=== PATIENT | female | born 1975 | race African-American/Black ===

== ENCOUNTER 2016-06-28 18:24 | Emergency (ER) | payer MEDICAID, OTHER ==
[~2016-06-28] VITALS: Ht 149.9 cm; Wt 78.0 kg
[~2016-06-28 18:24] MED LIST: ACET500T3 PO
[2016-06-28 18:32] VITALS: BP 145/93; PULSE 108; RESP 16; TEMP 98.4; O2SAT 98
[2016-06-28] MEDS ORDERED: MULT1TAB84 PO (18:58)
[2016-06-28] MEDS ORDERED: BIOT10TA PO (18:58)
[2016-06-28] MEDS ORDERED: FEXO15TA PO (18:58)
[2016-06-28] MEDS ORDERED: predniSONE 20 MG TAB PO ONE (19:15)
[2016-06-28] MEDS ORDERED: PRED20 PO (19:22)
[2016-06-28] MEDS ORDERED: BENA25TA3 PO (19:22)
--- NOTE | 2016-06-28 19:23 | PD ---
HPI Chief Complaint: Skin Problem Time Seen by Provider: 19:04 Travel History International Travel<30 days: No Contact w/Intl Traveler<30days: No Traveled to known affect area: No History of Present Illness HPI Patient is a 41-year-old female who presents to emergency room with complaints of dry itchy skin with rash. Patient reports that ago, she was treated for bedbugs, reports that since then, she has had exterminators come to her house and she has since moved out of her house. She reports that she had left all her furniture and did not take any of her belongings except for her clothes which she washed in hot water and dryed under "hot" conditions. Patient reports that she has been using [id number] creams her pruritus, reports that symptoms have continued. Patient reports that she still has dry itchy skin to her groin, no fevers or chills. Reports no new bites. Reports "i can't stop scratching my skin." Patient has not followed up with her pcp or police stenographer for this. PFSH Past Medical History Asthma: Yes Diminished Hearing: No Respiratory: Yes (ASTHMA) Tetanus Vaccination: < 5 Years ?: Not LMP: 2 weeks ago : 5 Para: 3 Miscarriage: 1 : 1 Dilation and Curettage (D&C): Yes Past Surgical History Section: Yes (X1) Gynecologic Surgery: Yes (D&C) Social History Alcohol Use: Yes (rarely) Tobacco Use: No Substance Use: No Allergies-Medications (Allergen,Severity, Reaction): Coded Allergies: Sulfa (Verified Allergy, Severe, PT STATES SHE IS UNSURE SHE WAS A CHILD, 02/01/16) Reported Meds & Prescriptions Reported Meds & Active Scripts Active Benadryl Allergy (Diphenhydramine HCl) 25 Mg Tab 25 Mg PO Q6H PRN 7 Days Prednisone 20 Mg Tab 20 Mg PO BID 5 Days Reported Multivitamin Adults (Multiple Vitamins W/ Minerals) 1 Tab 1 Tab PO DAILY Tatum Allergy (Fexofenadine HCl) 180 Mg Tab 180 Mg PO DAILY Biotin 10 Mg Tab 10 Mg PO DAILY Review of Systems General / Constitutional: No: Fever Eyes: No: Visual changes HENT: No: Headaches Cardiovascular: No: Chest Pain or Discomfort Respiratory: No: Shortness of Breath Gastrointestinal: No: Abdominal Pain Genitourinary: No: Dysuria Musculoskeletal: No: Pain Skin: Positive Rash, Positive Itching, Positive Dryness, Positive Hives Neurologic: No: Weakness Psychiatric: No: Depression Endocrine: No: Polydipsia Hematologic/Lymphatic: No: Easy Bruising Physical Exam Narrative GENERAL: No acute distress, nontoxic SKIN: Focused skin assessment warm/dry. Patient with hives to her thighs b/l, no petechiae or purpura, no vesicular lesion, no drainage, no redness or erythema HEAD: Atraumatic. Normocephalic. EYES: Pupils equal and round. No scleral icterus. No injection or drainage. ENT: No nasal bleeding or discharge. Mucous membranes pink and moist. NECK: Trachea midline. No JVD. CARDIOVASCULAR: Regular rate and rhythm. No murmur appreciated. RESPIRATORY: No accessory muscle use. Clear to auscultation. Breath sounds equal bilaterally. GASTROINTESTINAL: Abdomen soft, non-tender, nondistended. Hepatic and splenic margins not palpable. MUSCULOSKELETAL: No obvious deformities. No clubbing. No cyanosis. No edema. NEUROLOGICAL: Awake and alert. No obvious cranial nerve deficits. Motor grossly within normal limits. Normal speech. PSYCHIATRIC: Appropriate mood and affect; insight and judgment normal. Data Data Last Documented VS Vital Signs Date Time Temp Pulse Resp B/P Pulse Ox O2 Delivery O2 Flow Rate FiO2 06/28/16 18:32 98.4 108 16 145/93 98 Room Air Orders Prednisone (Deltasone) (06/28/16 19:15) MDM Medical Decision Making Medical Screen Exam Complete: Yes Emergency Medical Condition: Yes Interpretation(s) Vital Signs Date Time Temp Pulse Resp B/P Pulse Ox O2 Delivery O2 Flow Rate FiO2 06/28/16 18:32 98.4 108 16 145/93 98 Room Air Differential Diagnosis Dermatitis, bedbugs Narrative Course Patient is a 41-year-old female who presents to emergency room for treatment of bedbugs. Patient reports that she was treated about one month ago for bedbugs, reports that her skin continues to itch despite using "anti-itch" cream. Patient with no fevers or chills. Patient reports that she did get rid of the bedbugs and is currently under a different living situation. Patient here for treatment of dermatitis. On physical exam, patient with no evidence of bug bites, patient does have dry and irritated skin to her bilateral thighs. There is no signs of infection, no erythema, edema or drainage. It does appear the patient is scratching the area of hives. Plan to start patient on prednisone, will have her follow-up with police stenographer. Patient also reports that she has been using coconut bath wash - reports that this is the only new thing that she has used on her skin. Encouraged patient to stop using this bath wash and start using Dove unscented. Encouraged her to use Tide unscented detergent as well as cereve/cetaphil or aquaphor for skin lotion. Patient will return to ER as needed. Diagnosis Primary Impression: Dermatitis Patient Instructions: General Instructions Additional Instructions: Please follow-up with police stenographer Return to emergency room as needed or if symptoms worsen or progress Use dove unscented soap Please use Cereve or Cetaphil or Aquaphor unscented lotion/creams Use Tide unscented clothing wash Med/Other Pt SpecificInfo: Prescription(s) given Scripts Diphenhydramine (Benadryl Allergy)25 Mg Tab25 Mg PO Q6H PRN (ALLERGIES) 7 Days Ref 0 Prov:Rebecca Smallwood DO 06/28/16 Prednisone 20 Mg Tab20 Mg PO BID 5 Days Ref 0 Prov:Rebecca Smallwood DO 06/28/16 Disposition: 01 DISCHARGE HOME Condition: Stable Rebecca Smallwood DO June 28, 2016 19:23
== END 2016-06-28 19:37 | disposition home or self-care (01) ==
LOC: PHED 18:24
DX: L30.9 Dermatitis, unspecified (principal); J45.909 Unspecified asthma, uncomplicated
CPT/HCPCS: 99283; J7512

== ENCOUNTER 2016-11-17 15:38 | Emergency (ER) | payer OTHER ==
[~2016-11-17] VITALS: Ht 149.9 cm; Wt 74.0 kg
[~2016-11-17 15:38] MED LIST changes: -ACET500T3 PO; +BENA25TA3 PO; +BIOT10TA PO; +FEXO15TA PO; +MULT1TAB84 PO; +PRED20 PO
[2016-11-17 15:41] VITALS: BP 128/66; PULSE 96; RESP 16; TEMP 99.2; O2SAT 100
--- NOTE | 2016-11-17 15:49 | PD ---
HPI Chief Complaint: Respiratory Symptoms Time Seen by Provider: 15:48 Travel History International Travel<30 days: No Contact w/Intl Traveler<30days: No Traveled to known affect area: No History of Present Illness HPI 41 Yo F with PMH of asthma and seasonal allergies presents to the ED for evaluation of one month history of chest congestion, nonproductive cough, occasional wheezing. She denies fever, chills, ear pain, sinus congestion, rhinorrhea, chest pain, palpitations, nausea, vomiting. She states that she does not currently have a rescue inhaler. She is not currently taking a daily antihistamine. She did not receive this years flu shot. PFSH Past Medical History Asthma: Yes Diminished Hearing: No Respiratory: Yes (ASTHMA) ?: Not LMP: 10/28/2016 : 5 Para: 3 Miscarriage: 1 : 1 Dilation and Curettage (D&C): Yes Past Surgical History Section: Yes (X1) Gynecologic Surgery: Yes (D&C) Social History Alcohol Use: Yes (rarely) Tobacco Use: No Substance Use: No Allergies-Medications (Allergen,Severity, Reaction): Coded Allergies: Sulfa (Sulfonamide Antibiotics) (Unverified Allergy, Severe, PT STATES SHE IS UNSURE SHE WAS A CHILD, 11/17/16) Reported Meds & Prescriptions Reported Meds & Active Scripts Active Reported Lortab (Hydrocodone-Acetaminophen) 10-325 Mg Tab 1 Tab PO Q6H PRN Review of Systems Except as stated in HPI: all other systems reviewed are Neg Physical Exam Narrative GENERAL: Well-nourished, well-developed black female in no acute distress. SKIN: Warm and dry. HEAD: Normocephalic. Atraumatic. EYES: No scleral icterus. No injection or drainage. PERRLA. EOMI. ENT: Pearly chapman tympanic membranes bilaterally. Nasal mucosa is moist. Oropharynx without erythema, edema or exudate. NECK: Supple, trachea midline. No JVD or lymphadenopathy. CARDIOVASCULAR: Regular rate and rhythm without murmurs, gallops, or rubs. RESPIRATORY: Breath sounds clear and equal bilaterally. No accessory muscle use. GASTROINTESTINAL: Abdomen soft, non-tender, nondistended. + Bowel sounds MUSCULOSKELETAL: No cyanosis, or edema. Noted to walk with normal gait. BACK: Nontender without obvious deformity. No CVA tenderness. Data Data Last Documented VS Vital Signs Date Time Temp Pulse Resp B/P (MAP) Pulse Ox O2 Delivery O2 Flow Rate FiO2 11/17/16 15:41 99.2 96 16 128/66 (86) 100 MDM Medical Decision Making Medical Screen Exam Complete: Yes Emergency Medical Condition: Yes Differential Diagnosis asthma exacerbation versus viral syndrome versus seasonal allergies versus other Narrative Course 41-year-old female with PMH of asthma and seasonal allergies presents to the ED for evaluation of one month history of intermittent, nonproductive cough, intermittent wheezing. She denies associated fever, chills, nausea, vomiting, chest pain, palpitations, cold symptoms. She did not receive this years flu's shot. She is not currently taking any medications to treat her chronic conditions. Vitals reviewed. On physical exam the patient is well-appearing. No cobblestoning of the posterior oropharynx. Breath sounds clear and equal bilaterally. Patient's prescribed short course of steroids, rescue inhaler and daily antihistamines. She is instructed to follow-up with her primary care provider. We discussed the importance of obtaining the flu shot. 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 She is stable and discharged home. Diagnosis Primary Impression: Seasonal allergies Qualified Codes: J30.2 - Other seasonal allergic rhinitis Additional Impression: Asthma Qualified Codes: J45.909 - Unspecified asthma, uncomplicated Referrals: Primary Care Physician Patient Instructions: Allergies (ED), Asthma (ED), General Instructions Additional Instructions: Rest, hydrate. Return to normal, gentle activities as tolerated. Take medications as prescribed. Follow-up with your primary care provider as discussed. Return to the ED for any urgent or emergent medical condition. Med/Other Pt SpecificInfo: Prescription(s) given Scripts Prednisone (Prednisone) 20 Mg Tab 20 MG PO DAILY for 5 Days, #5 TAB 0 Refills Prov: Jamel Murray MD 11/17/16 Albuterol 8.5 GM Inh (Proair Hfa 8.5 GM Inh) 90 Mcg/Act Aer 2 PUFF INH Q4-6H Y for SHORTNESS OF BREATH, #1 INHALER 0 Refills 108 mcg/actuation Prov: Jamel Murray MD 11/17/16 Fexofenadine (Tatum Allergy) 180 Mg Tab 180 MG PO DAILY for Allergy Management, #30 TAB 0 Refills Prov: Jamel Murray MD 11/17/16 Disposition: 01 DISCHARGE HOME Condition: Stable Arina Tellez Nov 17, 2016 15:49
[2016-11-17] MEDS ORDERED: HYDR-3535 PO (15:53)
[2016-11-17] MEDS ORDERED: ALBUAER3 INH (15:57)
[2016-11-17] MEDS ORDERED: FEXO15TA PO (15:57)
[2016-11-17] MEDS ORDERED: PRED20 PO (15:57)
== END 2016-11-17 16:49 | disposition home or self-care (01) ==
LOC: PHEFT 15:38
DX: J45.909 Unspecified asthma, uncomplicated (principal); J30.2 Other seasonal allergic rhinitis
CPT/HCPCS: 99283

== ENCOUNTER 2017-07-28 21:47 | Emergency (ER) | payer OTHER ==
[~2017-07-28] VITALS: Ht 149.9 cm; Wt 73.0 kg
[~2017-07-28 21:47] MED LIST changes: +ALBUAER3 INH; -BENA25TA3 PO; -BIOT10TA PO; +HYDR-3535 PO; -MULT1TAB84 PO
[2017-07-28 21:52] VITALS: BP 130/64; PULSE 95; RESP 20; TEMP 98.4; O2SAT 97
--- NOTE | 2017-07-28 22:39 | PD ---
HPI Chief Complaint: Cold / Flu Symptoms Time Seen by Provider: 22:20 Travel History International Travel<30 days: No Contact w/Intl Traveler<30days: No Traveled to known affect area: No History of Present Illness HPI Patient is a 42 year old female presents to the ER for evaluation of cough congestion sore throat for the past 3 days. States the cough is nonproductive. She also endorses mild nausea no vomiting and no belly pain but does also endorse some urinary frequency.. no chest pain no shortness of breath, she states typically when she gets cough and colds exacerbates her mild asthma. Denies any fevers nausea vomiting diarrhea constipation. Symptoms mild for the past 3 days, gradually worsening, associated signs symptoms in context as above. PFSH Past Medical History Asthma: Yes Diminished Hearing: No Respiratory: Yes (ASTHMA) Tetanus Vaccination: Unknown Influenza Vaccination: No (STATES CANT GET THE FLU VACCINE) ?: Not LMP: 5-30-18 : 5 Para: 3 Miscarriage: 1 : 1 Dilation and Curettage (D&C): Yes Past Surgical History Section: Yes (X1) Gynecologic Surgery: Yes (D&C) Social History Alcohol Use: Yes (rarely) Tobacco Use: No Substance Use: No Allergies-Medications (Allergen,Severity, Reaction): Coded Allergies: Sulfa (Sulfonamide Antibiotics) (Verified Allergy, Severe, PT STATES SHE IS UNSURE SHE WAS A CHILD, 07/28/17) Reported Meds & Prescriptions Reported Meds & Active Scripts Active Proair Hfa 8.5 GM Inh (Albuterol Sulfate) 90 Mcg/Act Aer 2 Puff INH Q4-6H PRN 108 mcg/actuation Review of Systems Except as stated in HPI: all other systems reviewed are Neg Physical Exam Narrative GENERAL: Well-nourished, well-developed patient. Nontoxic appearance, exhibiting a very rare dry cough. SKIN: Focused skin assessment warm/dry. No rash no wound HEAD: Normocephalic. EYES: No scleral icterus. No injection or drainage. ENT TMs clear bilaterally, oropharynx clear and moist. NECK: Supple, trachea midline. No JVD or lymphadenopathy. CARDIOVASCULAR: Regular rate and rhythm without murmurs, gallops, or rubs. RESPIRATORY: Breath sounds equal bilaterally. No accessory muscle use. No wheezes rales or rhonchi. GASTROINTESTINAL: Abdomen soft, non-tender, nondistended. MUSCULOSKELETAL: No cyanosis, or edema. BACK: Nontender without obvious deformity. No CVA tenderness. Data Data Last Documented VS Vital Signs Date Time Temp Pulse Resp B/P (MAP) Pulse Ox O2 Delivery O2 Flow Rate FiO2 07/28/17 23:38 86 18 98 07/28/17 21:52 98.4 130/64 (86) Orders Orders Urinalysis - C+S If Indicated (07/28/17 22:38) Ed Discharge Order (07/28/17 23:18) Labs Laboratory Tests Test 07/28/17 22:46 Urine Color YELLOW Urine Turbidity CLEAR Urine pH 6.0 Urine Specific [place] GREATER/EQUAL 1.030 Urine Protein NEG mg/dL Urine Glucose (UA) NEG mg/dL Urine Ketones TRACE mg/dL Urine Occult Blood NEG Urine Nitrite NEG Urine Bilirubin NEG Urine Urobilinogen 0.2 MG/DL Urine Leukocyte Esterase NEG Urine RBC 0-3 /hpf Urine WBC 0-2 /hpf Urine Squamous Epithelial Cells 0-5 /hpf Urine Bacteria FEW /hpf Urine Mucus MANY /lpf Microscopic Urinalysis Comment CULT NOT INDICATED MDM Medical Decision Making Medical Screen Exam Complete: Yes Emergency Medical Condition: Yes Differential Diagnosis UTI, URI, pneumonia unlikely, strep throat unlikely due to very low Centor score peer Narrative Course Patient room to the emergency department, UA negative, vital signs are reassuring as well as her physical exam. Discussed with her symptomatic management return to ED criteria. She did ask for an asthma inhaler and I am able to oblige. Discussed follow-up with her primary care physician. She is stable for discharge Diagnosis Primary Impression: Upper respiratory infection Qualified Codes: J06.9 - Acute upper respiratory infection, unspecified Med/Other Pt SpecificInfo: Prescription(s) given Scripts Albuterol 8.5 GM Inh (Proair Hfa 8.5 GM Inh) 90 Mcg/Act Aer 2 PUFF INH Q4-6H Y for SHORTNESS OF BREATH, #1 INHALER 0 Refills 108 mcg/actuation Prov: Alessio Aguero MD 07/28/17 Disposition: 01 DISCHARGE HOME Condition: Stable Alessio Aguero MD Jul 28, 2017 22:39
[2017-07-28 23:04] LABS: BILIRUBIN, URINE NEG (NEG); BLOOD, URINE NEG (NEG); GLUCOSE,URINE NEG (NEG); KETONE, URINE TRACE mg/dL (NEG); NITRITE,URINE NEG (NEG); URINE COLOR YELLOW (YELLW/STRAW); URINE LEUKOCYTE ESTERASE NEG (NEG)
[2017-07-28 23:12] LABS: BACTERIA, URINE FEW /hpf; MUCUS URINE MANY /lpf (OCC); RBC, URINE 0-3 /hpf (0-3); SQUAMOUS EPITHELIAL CELL URINE 0-5 /hpf (0-5); WBC, URINE 0-2 /hpf (0-5)
[2017-07-28] MEDS ORDERED: ALBUAER3 INH (23:35)
== END 2017-07-28 23:40 | disposition home or self-care (01) ==
LOC: PHEFT 21:47
DX: J06.9 Acute upper respiratory infection, unspecified (principal); R35.0 Frequency of micturition; J45.909 Unspecified asthma, uncomplicated
CPT/HCPCS: 81001; 99283